=== PATIENT | male | born 2000 | race Caucasian/White ===

== ENCOUNTER 2025-02-02 14:33 | Emergency (ER) | payer OTHER ==
[~2025-02-02] VITALS: Ht 175.3 cm; Wt 77.1 kg
[2025-02-02 14:42] VITALS: BP 126/82; TEMP 98.3; O2SAT 96
== END 2025-02-02 15:08 | disposition home or self-care (01) ==
LOC: ER 14:42
DX: L73.9 Follicular disorder, unspecified (principal)